=== PATIENT | male | born 1940 | race Caucasian/White ===

== ENCOUNTER 2019-08-22 15:44 | Inpatient (IN) | payer OTHER ==
[~2019-08-22] VITALS: Ht 175.3 cm; Wt 68.2 kg
[~2019-08-22 15:44] MED LIST: COUMADIN2 MG PO
[2019-08-22 15:51] VITALS: Ht 175.3 cm; Wt 68.2 kg
[2019-08-22] MEDS ORDERED: ATORVASTATIN CA20 M1 PO (16:13)
[2019-08-22] MEDS ORDERED: ZESTRIL5 MG PO (16:13)
[2019-08-22 16:33] LABS: PLATELET COUNT 141 x10^3mcL (130-400); RED CELL DISTRIBUTION WIDTH 13.7 % (11.5-14.5)
[2019-08-22 17:02] LABS: CALCIUM 8.7 mg/dL (8.5-10.1); CARBON DIOXIDE 24.3 mmol/L (21-32); CHLORIDE SERUM 109 mmol/L (98-107); GLUCOSE SERUM 91 mg/dL (74-106); POTASSIUM SERUM 4.6 mmol/L (3.5-5.1); SODIUM SERUM 144 mmol/L (136-145)
[2019-08-22 17:07] LABS: ALBUMIN 3.7 g/dL (3.4-5.0); ALKALINE PHOSPHATASE 80 U/L (46-116); ALT/SGPT 130 U/L (16-63); AST/SGOT 62 U/L (15-37); BILIRUBIN TOTAL 0.8 mg/dL (0.20-1.00); TOTAL PROTEIN, SERUM 6.6 g/dL (6.4-8.2)
[2019-08-22 19:22] LABS: MAGNESIUM 2.2 mg/dL (1.8-2.4)
[2019-08-22 19:27] LABS: CHOLESTEROL/HDL RATIO 2.1
[2019-08-22 21:21] VITALS: BP 116/78
[2019-08-22 22:39] LABS: microscopic required? YES; urine erythrocyte TRACE (NEGATIVE)
[2019-08-22 22:59] LABS: AMPHETAMINE QUAL UR NONE DETECTED (See below)
[2019-08-22 23:00] VITALS: BP 108/80
[2019-08-23] VITALS (9 sets, daily range): BP systolic 81–127; BP diastolic 45–79
[2019-08-23 05:21] LABS: BASOPHIL % 0.5 % (0-2); RED CELL DISTRIBUTION WIDTH 14.3 % (11.5-14.5)
[2019-08-23 05:22] LABS: PLATELET COUNT 124 x10^3mcL (130-400)
[2019-08-23 05:35] LABS: CALCIUM 9.4 mg/dL (8.5-10.1); CHLORIDE SERUM 111 mmol/L (98-107); CREATININE SERUM 1.1 mg/dL (0.7-1.3); GLUCOSE SERUM 88 mg/dL (74-106); POTASSIUM SERUM 4.3 mmol/L (3.5-5.1); SODIUM SERUM 145 mmol/L (136-145)
[2019-08-24 05:31] VITALS: BP 101/76
[2019-08-24 09:33] VITALS: BP 101/68
[2019-08-24 14:19] VITALS: BP 104/74
[2019-08-24 17:48] VITALS: BP 92/57
[2019-08-24 20:25] VITALS: BP 102/63
[2019-08-25] VITALS (7 sets, daily range): BP systolic 95–113; BP diastolic 48–78
[2019-08-26] VITALS (7 sets, daily range): BP systolic 81–118; BP diastolic 47–82
[2019-08-27 05:42] VITALS: BP 103/54
[2019-08-27 08:23] VITALS: BP 107/55
[2019-08-27 12:11] VITALS: BP 123/59; BP 86/54
[2019-08-27 16:06] VITALS: BP 109/67
[2019-08-27 20:00] VITALS: BP 104/61
[2019-08-28] VITALS (9 sets, daily range): BP systolic 86–113; BP diastolic 54–85
[2019-08-29 05:15] VITALS: BP 98/73
[2019-08-29 08:06] VITALS: BP 110/61
[2019-08-29 12:00] VITALS: BP 125/84
[2019-08-29 16:17] VITALS: BP 90/62
[2019-08-29 20:27] VITALS: BP 102/63
[2019-08-30 05:30] VITALS: BP 97/55
[2019-08-30 08:56] VITALS: BP 99/53
[2019-08-30 12:10] VITALS: BP 106/72
[2019-08-30 17:01] VITALS: BP 96/59
[2019-08-30 20:09] VITALS: BP 102/65
[2019-08-31 04:44] VITALS: BP 96/61
[2019-08-31 06:21] LABS: BASOPHIL % 0.8 % (0-2); RED CELL DISTRIBUTION WIDTH 13.1 % (11.5-14.5)
[2019-08-31 06:57] LABS: CALCIUM 8.8 mg/dL (8.5-10.1); CARBON DIOXIDE 29.4 mmol/L (21-32); CHLORIDE SERUM 108 mmol/L (98-107); CREATININE SERUM 0.9 mg/dL (0.7-1.3); GLUCOSE SERUM 83 mg/dL (74-106); SODIUM SERUM 143 mmol/L (136-145)
[2019-08-31 08:27] LABS: PLATELET COUNT 217 x10^3mcL (130-400)
[2019-08-31 09:52] VITALS: BP 111/71
[2019-08-31 17:55] VITALS: BP 92/66
[2019-08-31 19:53] VITALS: BP 112/76
[2019-09-01 05:29] VITALS: BP 91/73
[2019-09-01 08:12] VITALS: BP 113/58
[2019-09-01 12:46] VITALS: BP 94/68
[2019-09-01] MEDS ORDERED: LISINOPRIL40 MG PO (13:46)
[2019-09-01 13:47] VITALS: BP 94/68
[2019-09-01 13:52] VITALS: BP 94/68
[2019-09-01 14:24] VITALS: BP 122/80
== END 2019-09-01 17:43 | disposition other institution (70) | DRG 309 ==
LOC: ED 15:44 → DU 18:12 → IC 18:12 → DU 08-23 20:37 → IC 08-23 20:40 → DU 08-23 20:44
PROVIDERS: Emergency Medicine; ADMIT Internal Medicine
DX: I48.0 Paroxysmal atrial fibrillation (principal); D68.9 Coagulation defect, unspecified; I48.92 Unspecified atrial flutter; I11.0 Hypertensive heart disease with heart failure; I50.9 Heart failure, unspecified; E78.00 Pure hypercholesterolemia, unspecified; I25.10 Atherosclerotic heart disease of native coronary artery without angina pectoris; I73.9 Peripheral vascular disease, unspecified; I34.0 Nonrheumatic mitral (valve) insufficiency; Z95.2 Presence of prosthetic heart valve; Z68.27 Body mass index [BMI] 27.0-27.9, adult; Z79.01 Long term (current) use of anticoagulants; Z79.899 Other long term (current) drug therapy
CPT/HCPCS: 83880; G0378; J0610; J1160; J1940; J3475; J3490; J7030; J7040; J7050; Q0092